=== PATIENT | male | born 1940 | race African-American/Black ===

== ENCOUNTER 2017-01-12 09:35 | Emergency (ER) | payer OTHER ==
[~2017-01-12 09:35] MED LIST: BAYE325T3 PO; D32000CA PO; FURO1TAB93 PO; LANTUS2P SC; LORTA5 PO; METO25 PO; MEVA40TA PO; NIFE90TA2 PO; PROS5TAB2 PO; SEVE800 PO
[2017-01-12 09:46] VITALS: BP 123/70; PULSE 77; RESP 18; TEMP 98.7; O2SAT 98
[2017-01-12] MEDS ORDERED: FURO40TA PO (10:02)
[2017-01-12] MEDS ORDERED: FINA5TAB2 PO (10:02)
[2017-01-12] MEDS ORDERED: LOVA40TA PO (10:02)
[2017-01-12] MEDS ORDERED: VITA10003 PO (10:02)
[2017-01-12] MEDS ORDERED: LANTUS2P SQ (10:02)
[2017-01-12] MEDS ORDERED: SEVE800T PO (10:02)
[2017-01-12] MEDS ORDERED: METO50TA PO (10:02)
[2017-01-12] MEDS ORDERED: ASPI1TAB69 PO (10:02)
[2017-01-12] MEDS ORDERED: CINA30 PO (10:03)
--- NOTE | 2017-01-12 10:45 | RADHPO ---
EXAM DATE/TIME: 01/12/2017 09:51 [facility] COMPARISON: No previous studies available for comparison. INDICATIONS : Left side weakness today, noticed when he got out of bed this am MEDICAL HISTORY : Diabetes mellitus type II. SURGICAL HISTORY : None. ENCOUNTER: Initial ACUITY: 1 day PAIN SCORE: 0/10 LOCATION: Left neck FINDINGS: Two projection examination was performed. There is normal alignment and curvature of the vertebral b odies down to the level of C7. No evidence of fracture or subluxation. Vertebral body height is calderon ntained. There are degenerative changes present from C3-C7. The prevertebral soft tissues are of norm al thickness. The atlanto-axial articulation is intact. CONCLUSION: Degenerative disc changes. Otherwise negative exam. Kamryn Wren MD on January 12, 2017 at 10:43 Board Certified Radiologist. This report was verified electronically.
--- NOTE | 2017-01-12 10:58 | PD ---
HPI Chief Complaint: General Weakness Time Seen by Provider: 09:46 Travel History International Travel<30 days: No Contact w/Intl Traveler<30days: No Traveled to known affect area: No History of Present Illness HPI Patient presents with complaints of left upper extremity weakness upon awakening this morning. Denies any numbness or tingling. Denies any facial asymmetry. Denies any lower extremity weakness. He does receive dialysis in his left arm last performed yesterday. Reports mild neck pain without trauma misstep or fall. 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) Cardiovascular Problems: Yes High Cholesterol: Yes Chemotherapy: No Diabetes: Yes Patient Takes Glucophage: No Dialysis: Yes (, , [facility]) Diminished Hearing: No Endocrine: Yes Genitourinary: Yes Hepatitis: No Hiatal Hernia: No Hypertension: Yes Immune Disorder: No Kidney Stones: Yes Musculoskeletal: Yes (ARTHRITIS ) Neurologic: No Psychiatric: No Reproductive: No Respiratory: No Immunizations Current: No Radiation Therapy: No Renal Failure: Yes Thyroid Disease: No Influenza Vaccination: Yes ?: Not Past Surgical History AICD: No Genitourinary Surgery: Yes (PROSTATE SURGERY 2005, PERM-CATH TO R CHEST ) Joint Replacement: No Pacemaker: No Other Surgery: Yes (LEFT KIDNEY REMOVED DUE TO MASS 2000, L ARM SHUNT ) Social History Alcohol Use: No Tobacco Use: No (QUIT 1979) Substance Use: No Allergies-Medications (Allergen,Severity, Reaction): Coded Allergies: Penicillin (Verified Allergy, Severe, RASH, 01/12/17) UNCONSCIOUS FOR 3 DAYS AT [facility] Tetanus Toxoid (Verified Adverse Reaction, Mild, EMESIS, 01/12/17) Reported Meds & Prescriptions Reported Meds & Active Scripts Active Reported Sensipar (Cinacalcet) 30 Mg Tab 30 Mg PO HS Metoprolol Tartrate 50 Mg Tab 50 Mg PO DAILY Finasteride 5 Mg Tab 5 Mg PO DAILY Do not crush. Furosemide 40 Mg Tab 40 Mg PO DAILY Aspirin 81 Mg Tabdr 81 Mg PO DAILY Renagel (Sevelamer HCl) 800 Mg Tab 800 Mg PO TID Vitamin D-3 (Cholecalciferol) 1,000 Unit Tab 5,000 Units PO DAILY Lovastatin 40 Mg Tab 40 Mg PO DAILY Lantus Inj (Insulin Glargine) 1,000 Unit/10 Ml Vial 15 Units SQ HS Review of Systems General / Constitutional: No: Fever Eyes: No: Visual changes HENT: No: Headaches Cardiovascular: No: Chest Pain or Discomfort Respiratory: No: Shortness of Breath Gastrointestinal: No: Abdominal Pain Genitourinary: No: Dysuria Musculoskeletal: No: Pain Skin: No Rash Neurologic: No: Weakness Psychiatric: No: Depression Endocrine: No: Polydipsia Hematologic/Lymphatic: No: Easy Bruising Physical Exam Narrative GENERAL: Well-nourished, well-developed patient. SKIN: Focused skin assessment warm/dry. HEAD: Normocephalic. EYES: No scleral icterus. No injection or drainage. NECK: Supple, trachea midline. No JVD or lymphadenopathy. CARDIOVASCULAR: Regular rate and rhythm without murmurs, gallops, or rubs. RESPIRATORY: Breath sounds equal bilaterally. No accessory muscle use. GASTROINTESTINAL: Abdomen soft, non-tender, nondistended. MUSCULOSKELETAL: No cyanosis, or edema. BACK: Nontender without obvious deformity. No CVA tenderness. Examination of cervical spine reveals mild midline tenderness with mild left- sided paraspinous pain Difficult examination the patient is able to move the left arm without complication. Questionable weakness in the left upper extremity, good strength in all other extremities no facial asymmetry Data Data Last Documented VS Vital Signs Date Time Temp Pulse Resp B/P Pulse Ox O2 Delivery O2 Flow Rate FiO2 01/12/17 09:46 98.7 77 18 123/70 98 Orders Spine, Cervical - Ltd (Ap&Lat) (01/12/17 ) MDM Medical Decision Making Medical Screen Exam Complete: Yes Emergency Medical Condition: Yes Differential Diagnosis Cervical degenerative disc disease, reaction to dialysis, cervical radiculopathy Narrative Course Assessment and plan discussed with patient at bedside. Feeling improved after films completed. Last 72 hours Impressions Cervical Spine X-Ray 01/12/17 0000 Signed Impressions: Service Date/Time: Thursday, January 12, 2017 09:51 - CONCLUSION: Degenerative disc changes. Otherwise negative exam. Kamryn Wren MD Diagnosis Primary Impression: Cervical radiculopathy Patient Instructions: General Instructions Additional Instructions: Encouraged nonsteroidal anti-inflammatories or Tylenol, warm heat, gentle stretching and strengthening and massage of the cervical spine. Encouraged general range of motion exercises of the arm. Follow-up with PCP. Med/Other Pt SpecificInfo: No Meds Exist/No RX given Disposition: 01 DISCHARGE HOME Condition: Good Jhoan Grover MD Jan 12, 2017 10:58
[2017-01-12 11:02] VITALS: BP 114/68
== END 2017-01-12 11:09 | disposition home or self-care (01) ==
LOC: PHED 09:35
DX: M54.12 Radiculopathy, cervical region (principal)
CPT/HCPCS: 72040; 99284

== ENCOUNTER 2017-07-18 11:53 | Emergency (ER) | payer OTHER ==
[~2017-07-18 11:53] MED LIST changes: +ASPI1TAB69 PO; -BAYE325T3 PO; +CINA30 PO; -D32000CA PO; +FINA5TAB2 PO; -FURO1TAB93 PO; +FURO40TA PO; -LANTUS2P SC; +LANTUS2P SQ; -LORTA5 PO; +LOVA40TA PO; -METO25 PO; +METO50TA PO; -MEVA40TA PO; -NIFE90TA2 PO; -PROS5TAB2 PO; -SEVE800 PO; +SEVE800T PO; +VITA10003 PO
[2017-07-18 11:56] VITALS: BP 85/53; PULSE 95; RESP 14; TEMP 97.8; O2SAT 95
--- NOTE | 2017-07-18 12:27 | PD ---
HPI Chief Complaint: General Weakness Time Seen by Provider: 12:20 Travel History International Travel<30 days: No Contact w/Intl Traveler<30days: No History of Present Illness HPI 77-year-old male presents to the emergency department with family members at bedside. Patient is on dialysis, Friday, , Friday. His heat treat supervisor is Dr. Kern. He apparently has been having issues with hypotension since yesterday at dialysis. He states that his blood pressure will normally run low, but it will come up once he stands up. However, his blood pressure remained low this morning. His family member checked it and it was 74/42. At this time, his blood pressure is 84/52. He is just started on midodrine and took his first dose this morning. The patient states he feels tired, slightly lightheaded, shortness of breath with exertion. He denies any pain. No chest pain or abdominal pain. No vomiting, diarrhea. He does report nausea. No aggravating or alleviating factors. Patient was previously on medication for hypertension, but states he has not taken it in the past month. Left arm is edematous. Patient states has been this way since he had his fistula redone recently, on Friday. He also states it is painful since surgery. 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) Cardiovascular Problems: Yes High Cholesterol: Yes Chemotherapy: No Diabetes: Yes Dialysis: Yes (, , [facility]) Diminished Hearing: No Endocrine: Yes Genitourinary: Yes Hepatitis: No Hiatal Hernia: No Hypertension: Yes Immune Disorder: No Kidney Stones: Yes Musculoskeletal: Yes (ARTHRITIS ) Neurologic: No Psychiatric: No Reproductive: No Respiratory: No Immunizations Current: No Radiation Therapy: No Renal Failure: Yes Thyroid Disease: No Past Surgical History AICD: No Genitourinary Surgery: Yes (PROSTATE SURGERY 2005, PERM-CATH TO R CHEST ) Joint Replacement: No Pacemaker: No Other Surgery: Yes (LEFT KIDNEY REMOVED DUE TO MASS 2000, L ARM SHUNT ) Social History Alcohol Use: No Tobacco Use: No (QUIT 1979) Substance Use: No Allergies-Medications (Allergen,Severity, Reaction): Coded Allergies: penicillin G (Unverified Allergy, Severe, RASH, 05/20/17) UNCONSCIOUS FOR 3 DAYS AT [facility] tetanus toxoid, adsorbed (Unverified Adverse Reaction, Mild, EMESIS, ) Reported Meds & Prescriptions Reported Meds & Active Scripts Active Reported Sensipar (Cinacalcet) 30 Mg Tab 30 Mg PO HS Metoprolol Tartrate 50 Mg Tab 50 Mg PO DAILY Finasteride 5 Mg Tab 5 Mg PO DAILY Do not crush. Furosemide 40 Mg Tab 40 Mg PO DAILY Aspirin 81 Mg Tabdr 81 Mg PO DAILY Renagel (Sevelamer HCl) 800 Mg Tab 800 Mg PO TID Vitamin D-3 (Cholecalciferol) 1,000 Unit Tab 5,000 Units PO DAILY Lovastatin 40 Mg Tab 40 Mg PO DAILY Lantus Inj (Insulin Glargine) 1,000 Unit/10 Ml Vial 15 Units SQ HS Review of Systems Except as stated in HPI: all other systems reviewed are Neg Physical Exam Narrative GENERAL: Well-nourished, well-developed elderly male patient, ambulatory. Afebrile. SKIN: Focused skin assessment warm/dry. HEAD: Normocephalic. Atraumatic. EYES: No scleral icterus. No injection or drainage. NECK: Supple, trachea midline. No JVD or lymphadenopathy. CARDIOVASCULAR: Regular rate and rhythm without murmurs, gallops, or rubs. RESPIRATORY: Breath sounds equal bilaterally. No accessory muscle use. Lungs sounds clear to auscultation. GASTROINTESTINAL: Abdomen soft, non-tender, nondistended. MUSCULOSKELETAL: No cyanosis. Patient has 2-3+ edema to left arm, tender to palpation. Bilateral upper and lower extremity strength is 5/5. BACK: Nontender without obvious deformity. No CVA tenderness. Data Data Last Documented VS Vital Signs Date Time Temp Pulse Resp B/P (MAP) Pulse Ox O2 Delivery O2 Flow Rate FiO2 07/18/17 16:00 82 18 107/58 (74) 98 Room Air 07/18/17 11:56 97.8 Orders Orders Electrocardiogram (07/18/17 12:17) Complete Blood Count With Diff (07/18/17 12:17) Comprehensive Metabolic Panel (07/18/17 12:17) Magnesium (Mg) (07/18/17 12:17) Ckmb (Isoenzyme) Profile (07/18/17 12:17) Troponin I (07/18/17 12:17) Act Partial Throm Time (Ptt) (07/18/17 12:17) Prothrombin Time / Inr (Pt) (07/18/17 12:17) Chest, Single Ap (07/18/17 12:17) Ecg Monitoring (07/18/17 12:17) Iv Access Insert/Monitor (07/18/17 12:17) Oximetry (07/18/17 12:17) Sodium Chloride 0.9% Flush (Ns Flush) (07/18/17 12:30) Orthostatic Vital Signs (07/18/17 12:17) Us Arm Venous Doppler (07/18/17 ) Sodium Chlorid 0.9% 500 Ml Inj (Ns 500 M (07/18/17 13:15) Sodium Polysty Sulfate Liq (Kayexalate L (07/18/17 14:00) Ed Poc Ultrasound (07/18/17 ) Labs Laboratory Tests Test 07/18/17 12:30 White Blood Count 8.1 TH/MM3 Red Blood Count 3.82 MIL/MM3 Hemoglobin 12.7 GM/DL Hematocrit 38.4 % Mean Corpuscular Volume 100.5 FL Mean Corpuscular Hemoglobin 33.2 PG Mean Corpuscular Hemoglobin Concent 33.0 % Red Cell Distribution Width 17.7 % Platelet Count 231 TH/MM3 Mean Platelet Volume 8.9 FL Neutrophils (%) (Auto) 66.1 % Lymphocytes (%) (Auto) 18.8 % Monocytes (%) (Auto) 13.1 % Eosinophils (%) (Auto) 0.9 % Basophils (%) (Auto) 1.1 % Neutrophils # (Auto) 5.4 TH/MM3 Lymphocytes # (Auto) 1.5 TH/MM3 Monocytes # (Auto) 1.1 TH/MM3 Eosinophils # (Auto) 0.1 TH/MM3 Basophils # (Auto) 0.1 TH/MM3 CBC Comment DIFF FINAL Differential Comment Prothrombin Time 11.0 SEC Prothromb Time International Ratio 1.0 RATIO Activated Partial Thromboplast Time 24.4 SEC Blood Urea Nitrogen 78 MG/DL Creatinine 15.98 MG/DL Random Glucose 145 MG/DL Total Protein 8.3 GM/DL Albumin 3.7 GM/DL Calcium Level 8.6 MG/DL Magnesium Level 2.5 MG/DL Alkaline Phosphatase 79 U/L Aspartate Amino Transf (AST/SGOT) 7 U/L Alanine Aminotransferase (ALT/SGPT) 8 U/L Total Bilirubin 0.5 MG/DL Sodium Level 132 MEQ/L Potassium Level 5.9 MEQ/L Chloride Level 97 MEQ/L Carbon Dioxide Level 20.3 MEQ/L Anion Gap 15 MEQ/L Estimat Glomerular Filtration Rate 4 ML/MIN Total Creatine Kinase 69 U/L Troponin I 0.02 NG/ML MDM Medical Decision Making Medical Screen Exam Complete: Yes Emergency Medical Condition: Yes Medical Record Reviewed: Yes Interpretation(s) chest x-ray - CONCLUSION: No acute cardiopulmonary findings. Incidental note made of a stent within the left axillary vein. Differential Diagnosis electrolyte abnormality versus dehydration versus pneumonia Narrative Course 77-year-old male presents to the emergency department for evaluation of hypotension. In exam room, blood pressure is 84/52. EKG, CBC, CMP, magnesium, CK, troponin, PTT, PT/INR, orthostatic vital signs, chest x-ray are ordered and pending. Venous doppler US of the left arm is ordered and pending. EKG shows sinus rhythm, heart rate 83, no acute ST changes. CBC shows anemia with hemoglobin 12.7, hematocrit 38.4. CMP shows hyponatremia 132, hyperkalemia 5.9, BUN 70, creatinine 15.9, glucose 145. CK is 69. Troponin is 0.02. Coags are unremarkable. Chest x-ray shows no acute cardiopulmonary findings. Incidental note made of a stent within the left axillary vein. Venous doppler US of the left arm shows patent fistula, thrombus involving the subclavian and brachial veins.. Patient is given normal saline 500 mL bolus and Kayexalate 15 g by mouth. My attending physician, Dr. Stroud, spoke with patient's heat treat supervisor, Dr. Kern , who recommends bedside ultrasound to rule out pericardial effusion in agrees with discharge to follow-up in office and have dialysis tomorrow. Bedside US done by Dr. Stroud shows mild pericardial effusion. Spoke to Dr. Elan Mcclelland with the vascular surgery Center who performed a thrombectomy of the left AV fistula. I relayed ultrasound reports to him and he states that this time, there is nothing to do. This is a non-sequential DVT and he will be fine. I relayed the findings to the patient who verbalizes agreement and understanding. The patient was discharged in stable condition with instructions, including return instructions and follow up instructions. Diagnosis Primary Impression: DVT (deep venous thrombosis) Qualified Codes: I82.622 - Acute embolism and thrombosis of deep veins of left upper extremity Additional Impressions: Hypotension Qualified Codes: I95.3 - Hypotension of hemodialysis ESRD (end stage renal disease) Referrals: Primary Care Physician call for appointment Patient Instructions: Deep Venous Thrombosis (ED), General Instructions, Hypotension (ED) Additional Instructions: Follow-up with Dr. Kern. Follow-up with Dr. Mcclelland, vascular surgeon. Return to the emergency department for any acute worsening of symptoms. Med/Other Pt SpecificInfo: No Change to Meds Disposition: 01 DISCHARGE HOME Condition: Stable Elsa Rosa MYKE Jul 18, 2017 12:27
[2017-07-18] MEDS ORDERED: SODIUM CHLORIDE 0.9% FLUSH 10 ML FLUSH IVF PRN (12:30)
[2017-07-18 12:36] VITALS: BP 84/52; PULSE 93; RESP 18; O2SAT 98
[2017-07-18 12:46] LABS: AUTOMATED NEUTROPHIL # 5.4 TH/MM3 (1.8-7.7); BASOPHIL # 0.1 TH/MM3 (0-0.2); BASOPHIL % 1.1 % (0.0-2.0); EOSINOPHIL # 0.1 TH/MM3 (0-0.4); EOSINOPHIL % 0.9 % (0.0-4.0); HEMATOCRIT 38.4 % (39.0-51.0); HEMO FLAGS DIFF FINAL; LYMPH % 18.8 % (9.0-44.0); LYMPHOCYTE # 1.5 TH/MM3 (1.0-4.8); MEAN CELL VOLUME 100.5 FL (80.0-100.0); MEAN CORPUSCULAR HEMOGLOBIN 33.2 PG (27.0-34.0); MONO % 13.1 % (0.0-8.0); NEUT % 66.1 % (16.0-70.0); PLATELET COUNT 231 TH/MM3 (150-450); RED BLOOD COUNT 3.82 MIL/MM3 (4.50-5.90); RED CELL DISTRIBUTION WIDTH 17.7 % (11.6-17.2); WHITE BLOOD COUNT 8.1 TH/MM3 (4.0-11.0)
[2017-07-18 13:01] LABS: APTT (PATIENT) 24.4 SEC (24.3-30.1)
[2017-07-18 13:12] LABS: ALT (GPT) 8 U/L (12-78); ANION GAP 15 MEQ/L (5-15); AST (GOT) 7 U/L (15-37); BICARBONATE 20.3 MEQ/L (21.0-32.0); BLOOD UREA NITROGEN 78 MG/DL (7-18); CHLORIDE 97 MEQ/L (98-107); GLOMERULAR FILTRATION RATE 4 ML/MIN (>89); MAGNESIUM 2.5 MG/DL (1.5-2.5); POTASSIUM 5.9 MEQ/L (3.5-5.1); SODIUM (NA) 132 MEQ/L (136-145)
[2017-07-18] MEDS ORDERED: SODIUM CHLORID 0.9% 500 ML INJ 500 ML IV ONE (13:15)
[2017-07-18 13:16] LABS: ALKALINE PHOSPHATASE 79 U/L (45-117); TOTAL BILIRUBIN ADULT 0.5 MG/DL (0.2-1.0)
--- NOTE | 2017-07-18 13:17 | RADRPT ---
EXAM DATE/TIME: 07/18/2017 12:35 [facility] COMPARISON: CHEST PA & LAT, December 11, 2015, 19:41. SPINE CERVICAL LTD (AP&LAT), January 12, 2017, 9:51. INDICATIONS : Weakness, low blood pressure, shortof breath. MEDICAL HISTORY : Renal insufficiency, chronic. SURGICAL HISTORY : None. ENCOUNTER: Initial ACUITY: 2 days PAIN SCORE: 0/10 LOCATION: Bilateral chest FINDINGS: A single view of the chest demonstrates the lungs to be symmetrically aerated without evidence of mas s, infiltrate or effusion. The cardiomediastinal contours are unremarkable. Osseous structures are intact. CONCLUSION: No acute cardiopulmonary findings. Incidental note made of a stent within the left axillary vein. Elan Rust MD on July 18, 2017 at 13:14 Board Certified Radiologist. This report was verified electronically.
[2017-07-18 13:24] LABS: CREATINE KINASE 69 U/L (39-308)
[2017-07-18 14:00] VITALS: BP 92/60; PULSE 89; RESP 18; O2SAT 98
[2017-07-18] MEDS ORDERED: SODIUM POLYSTYRENE SULFONATE SUSP 15 GM/60 ML CUP PO ONE (14:00)
--- NOTE | 2017-07-18 15:20 | RADRPT ---
EXAM DATE/TIME: 07/18/2017 13:14 [facility] COMPARISON: No previous studies available for comparison. INDICATIONS : Left arm edema. MEDICAL HISTORY : Hypercholesterolemia. Renal calculi. Carcinoma, prostate. HTN. Renal disease. Left renal cancer. Arth ritis. Diabetes. Anticoagulant therapy, Aspirin 81mg. SURGICAL HISTORY : Prostatectomy. Nephrectomy, left. Bilateral cataracts. Dialysis. Right chest cath. Left arm shunt. ENCOUNTER: Initial ACUITY: 3 days PAIN SCORE: 4/10 LOCATION: Left arm. FINDINGS: Thrombus is seen extending from the subclavian vein to the distal brachial vein. The shunt itself kathy ears patent. The jugular vein is patent. There is minimal nonocclusive thrombus involving the region of the anastomosis and previous surgery. CONCLUSION: 1. Patent fistula. 2. Thrombus involving the subclavian and brachial vein8 Angel Bailey MD on July 18, 2017 at 15:16 Board Certified Radiologist. This report was verified electronically.
--- NOTE | 2017-07-18 15:44 | EKG ---
Date Performed: 07/18/2017 Time Performed: 12:57:26 PTAGE: 77 years EKG: Sinus rhythm WITH FIRST DEGREE AV BLOCK BORDERLINE LEFT AXIS DEVIATION ABNORMAL ECG No significant change from pr ior electrocardiogram. PREVIOUS TRACING : 12/11/2015 19.37 DOCTOR: Darrell Marquez Interpretating Date/Time 07/18/2017 15:42:21
[2017-07-18 16:00] VITALS: BP 107/58; PULSE 82; RESP 18; O2SAT 98
--- NOTE | 2017-07-18 16:32 | PD ---
Data Data Last Documented VS Vital Signs Date Time Temp Pulse Resp B/P (MAP) Pulse Ox O2 Delivery O2 Flow Rate FiO2 07/18/17 16:00 82 18 107/58 (74) 98 Room Air 07/18/17 11:56 97.8 Orders Orders Electrocardiogram (07/18/17 12:17) Complete Blood Count With Diff (07/18/17 12:17) Comprehensive Metabolic Panel (07/18/17 12:17) Magnesium (Mg) (07/18/17 12:17) Ckmb (Isoenzyme) Profile (07/18/17 12:17) Troponin I (07/18/17 12:17) Act Partial Throm Time (Ptt) (07/18/17 12:17) Prothrombin Time / Inr (Pt) (07/18/17 12:17) Chest, Single Ap (07/18/17 12:17) Ecg Monitoring (07/18/17 12:17) Iv Access Insert/Monitor (07/18/17 12:17) Oximetry (07/18/17 12:17) Sodium Chloride 0.9% Flush (Ns Flush) (07/18/17 12:30) Orthostatic Vital Signs (07/18/17 12:17) Us Arm Venous Doppler (07/18/17 ) Sodium Chlorid 0.9% 500 Ml Inj (Ns 500 M (07/18/17 13:15) Sodium Polysty Sulfate Liq (Kayexalate L (07/18/17 14:00) Ed Poc Ultrasound (07/18/17 ) Labs Laboratory Tests Test 07/18/17 12:30 White Blood Count 8.1 TH/MM3 Red Blood Count 3.82 MIL/MM3 Hemoglobin 12.7 GM/DL Hematocrit 38.4 % Mean Corpuscular Volume 100.5 FL Mean Corpuscular Hemoglobin 33.2 PG Mean Corpuscular Hemoglobin Concent 33.0 % Red Cell Distribution Width 17.7 % Platelet Count 231 TH/MM3 Mean Platelet Volume 8.9 FL Neutrophils (%) (Auto) 66.1 % Lymphocytes (%) (Auto) 18.8 % Monocytes (%) (Auto) 13.1 % Eosinophils (%) (Auto) 0.9 % Basophils (%) (Auto) 1.1 % Neutrophils # (Auto) 5.4 TH/MM3 Lymphocytes # (Auto) 1.5 TH/MM3 Monocytes # (Auto) 1.1 TH/MM3 Eosinophils # (Auto) 0.1 TH/MM3 Basophils # (Auto) 0.1 TH/MM3 CBC Comment DIFF FINAL Differential Comment Prothrombin Time 11.0 SEC Prothromb Time International Ratio 1.0 RATIO Activated Partial Thromboplast Time 24.4 SEC Blood Urea Nitrogen 78 MG/DL Creatinine 15.98 MG/DL Random Glucose 145 MG/DL Total Protein 8.3 GM/DL Albumin 3.7 GM/DL Calcium Level 8.6 MG/DL Magnesium Level 2.5 MG/DL Alkaline Phosphatase 79 U/L Aspartate Amino Transf (AST/SGOT) 7 U/L Alanine Aminotransferase (ALT/SGPT) 8 U/L Total Bilirubin 0.5 MG/DL Sodium Level 132 MEQ/L Potassium Level 5.9 MEQ/L Chloride Level 97 MEQ/L Carbon Dioxide Level 20.3 MEQ/L Anion Gap 15 MEQ/L Estimat Glomerular Filtration Rate 4 ML/MIN Total Creatine Kinase 69 U/L Troponin I 0.02 NG/ML MDM Supervised Visit with FIDE: Yes Narrative Course The history, exam, and medical decision-making in the associated midlevel provider note were completed with my assistance. I reviewed and agree with the findings presented. I attest that I had a [id number] encounter with the patient on the same day, and personally performed and documented my assessment and findings in the medical record. *My assessment and Findings: This is a 77-year-old male with history of end- stage renal disease he's been struggling with low blood pressure over the past several weeks. His doctor started him on Midrin and he took it today however his blood pressure was still low and so his family brought him to the emergency department. He has felt more lightheaded and weak. Here his map was in the low 60s. He was given a 500 cc bolus and his blood pressure improved. We spoke to Dr. Kern who was aware of the problem. He asked me to evaluate for pericardial effusion. I did a bedside ultrasound and I see a mild pericardial effusion but nothing that would explain the patient's symptoms. I think it's reasonable for the patient to be discharged. He was given a dose of Kayexalate for his potassium. He has no EKG changes. He will have dialysis tomorrow. He also had a lot of swelling in his left upper extremity and recently had an intervention on his AV fistula on that side. An ultrasound was performed demonstrating extensive DVT in that arm. We spoke to Dr. Mcclelland who is his vascular surgeon who didn't think anticoagulation was indicated and he could be managed conservatively. Nga Stroud MD Jul 18, 2017 16:32
== END 2017-07-18 17:19 | disposition home or self-care (01) ==
LOC: NEPE 11:53
DX: I82.622 Acute embolism and thrombosis of deep veins of left upper extremity (principal); I95.9 Hypotension, unspecified; E11.22 Type 2 diabetes mellitus with diabetic chronic kidney disease; I12.0 Hypertensive chronic kidney disease with stage 5 chronic kidney disease or end stage renal disease; N18.6 End stage renal disease; Z99.2 Dependence on renal dialysis; E78.5 Hyperlipidemia, unspecified; Z87.891 Personal history of nicotine dependence; Z79.82 Long term (current) use of aspirin; Z79.4 Long term (current) use of insulin; Z79.899 Other long term (current) drug therapy
CPT/HCPCS: 71010; 80053; 82550; 83735; 84484; 85025; 85610; 85730; 93005; 93971; 96360; 99285; J7040